=== PATIENT | male | born 1955 | race Caucasian/White ===

== ENCOUNTER 2017-04-03 06:14 | Day surgery (SDC) | payer OTHER ==
[2017-03-26 10:17] VITALS: BP 112/70
[~2017-04-03] VITALS: Ht 172.7 cm; Wt 73.0 kg
[~2017-04-03 06:14] MED LIST: ASPI-496 PO; CHRO400T6 PO; DOCU100C8 PO; GLUC500T8 PO
[2017-04-03] MEDS ORDERED: BUPIVACAINE/PF-EPI 0.25% 1:200K ONE (06:44)
[2017-04-03] MEDS ORDERED: LIDOCAINE 1%, 2ML ONE (06:49)
[2017-04-03] MEDS ORDERED: MIDAZOLAM 1 MG/ML, 2ML ONE (06:58)
[2017-04-03] MEDS ORDERED: FENTANYL PF 250 MCG/5ML ONE (06:58)
[2017-04-03] MEDS ORDERED: LACTATED RINGERS 1,000 ML IV SCH (07:11)
[2017-04-03] MEDS ORDERED: NEOSTIGMINE 1 MG/ML, 10ML ONE (07:29)
[2017-04-03] MEDS ORDERED: PROPOFOL 10 MG/ML, 20ML ONE (07:29)
[2017-04-03] MEDS ORDERED: CEFAZOLIN 1,000 MG ONE (07:29)
[2017-04-03] MEDS ORDERED: DEXAMETHASONE 4 MG/ML, 1ML ONE (07:29)
[2017-04-03] MEDS ORDERED: ROCURONIUM 10 MG/ML ONE (07:29)
[2017-04-03] MEDS ORDERED: KETOROLAC 30 MG/1 ML ONE (07:29)
[2017-04-03] MEDS ORDERED: GLYCOPYRROLATE 0.2MG/1ML ONE (07:29)
[2017-04-03] MEDS ORDERED: SUCCINYLCHOLINE 20 MG/ML, 10ML ONE (07:29)
[2017-04-03] MEDS ORDERED: ONDANSETRON 2MG/ML, 2ML ONE (07:29)
[2017-04-03] MEDS ORDERED: LIDOCAINE 1%, 2ML SQ PRN (07:30)
[2017-04-03] MEDS ORDERED: hydrALAzine 20 MG/ML, 1ML IV PRN (09:00)
[2017-04-03] MEDS ORDERED: FENTANYL PF 100 MCG/2ML IV PRN (09:00)
[2017-04-03] MEDS ORDERED: HYDROmorphone 1 MG/ML, 1ML IV PRN (09:00)
[2017-04-03] MEDS ORDERED: ACETAMINOPHEN 325 MG TABLET PO PRN (09:00)
[2017-04-03] MEDS ORDERED: LABETALOL 5MG/ML, 20ML IV PRN (09:00)
[2017-04-03] MEDS ORDERED: OXYcodone 5 MG/5 ML ORAL.SOL UDC PO PRN (09:00)
[2017-04-03] MEDS ORDERED: METOCLOPRAMIDE 5 MG/ML, 2ML IV PRN (09:00)
[2017-04-03] MEDS ORDERED: ONDANSETRON 2MG/ML, 2ML IVPush PRN (09:00)
[2017-04-03] MEDS ORDERED: ACETAMINOPHEN 650 MG/20.3 ML UDC ONE (09:48)
[2017-04-03] MEDS ORDERED: ACETAMINOPHEN 325 MG TABLET ONE (09:49)
== END 2017-04-03 11:40 | disposition home or self-care (01) ==
LOC: OUT 06:14
PROVIDERS: ATTEND Surgery
DX: K40.91 Unilateral inguinal hernia, without obstruction or gangrene, recurrent (principal); D17.6 Benign lipomatous neoplasm of spermatic cord; M85.80 Other specified disorders of bone density and structure, unspecified site; Z98.52 Vasectomy status; Z72.89 Other problems related to lifestyle; M1A.00X0 Idiopathic chronic gout, unspecified site, without tophus (tophi); Z80.3 Family history of malignant neoplasm of breast
CPT/HCPCS: 49651; C1781; J0330; J0690; J1100; J1885; J2250; J2405; J2704; J2710; J3010; J3490; J7120; S2900